=== PATIENT | male | born 1930 | race Caucasian/White ===

== ENCOUNTER 2017-12-08 10:33 | Inpatient (IN) | payer MEDICARE ==
[~2017-12-08] VITALS: Ht 167.6 cm; Wt 77.0 kg
[2017-12-08 11:17] LABS: Basophils # (auto) 0.1 uL; Basophils % (auto) 0.7 % (0.0-2.0); Eosinophils # (auto) 0.1 uL; Eosinophils % (auto) 1.1 % (0.0-7.0); Hematocrit 41.5 % (41.0-53.0); Hemoglobin 13.9 g/dL (13.5-17.5); Lymphocytes # (auto) 1.9 uL; Lymphocytes % (auto) 21.2 % (10.0-50.0); Mean Corpuscular Hgb Conc. 33.5 g/dL (32.0-36.0); Mean Corpuscular Volume 86.7 fL (80.0-100.0); Monocytes # (auto) 0.6 uL; Monocytes % (auto) 6.3 % (0.0-12.0); Neutrophils # (auto) 6.2 uL; Neutrophils % (auto) 70.7 % (37.0-80.0); Platelet Count (auto) 241 10^3/uL (140-450); Red Blood Cells 4.78 10^6/uL (4.5-5.90); Red Cell Distribution Width 13.1 % (11.8-14.3); White Blood Cell 8.8 10^3/uL (4.4-10.8)
[2017-12-08 11:48] LABS: Alanine Aminotransferase 39 U/L (16-61); Albumin 3.5 g/dL (3.4-5.0); Alkaline Phosphatase 61 U/L (45-117); Anion Gap 16 (5-15); Aspartate Aminotransferase 23 U/L (15-37); BUN/Creatinine Ratio 13.6; Blood Alcohol < 3.0 mg/dL (0-5); Blood Urea Nitrogen 23 mg/dL (7-18); Calcium 8.8 mg/dL (8.5-10.1); Carbon Dioxide 20 mmol/L (21-32); Chloride 107 mmol/L (98-107); GFR African American 50 mL/min; GFR Non-African American 41 mL/min; Glucose 157 mg/dL (74-106); Magnesium 2.4 mg/dL (1.6-2.6); Potassium 3.8 mmol/L (3.5-5.1); Sodium 143 mmol/L (136-145); Total Protein 7.3 g/dL (6.4-8.2)
[2017-12-08] MEDS ORDERED: InsuLIN R (HUMAN) 100 UNITS in SODIUM CHL 0.9% 99 ML IV SCH (13:35)
[2017-12-08] MEDS ORDERED: SODIUM CHLORIDE 0.9% 1,000 ML IV SCH ×3 (13:35→19:35)
[2017-12-08] MEDS ORDERED: DEXTROSE (50%) 50ML SYRG IV PRN ×2 (13:45→14:15)
[2017-12-08] MEDS ORDERED: cefTRIAXone 1GM/10ml IVPUSH 10 ML IV ONE (14:15)
[2017-12-08] MEDS ORDERED: NITROGLYCERIN 0.4 MG SL TAB SL PRN (14:15)
[2017-12-08] MEDS ORDERED: MORPHINE SULF INJ 2 MG/ML SYRINGE 1ML IV PRN (14:15)
[2017-12-08 14:35] LABS: Basophils # (auto) 0 uL; Basophils % (auto) 0.5 % (0.0-2.0); Eosinophils # (auto) 0 uL; Eosinophils % (auto) 0.3 % (0.0-7.0); Hematocrit 42.1 % (41.0-53.0); Hemoglobin 14.4 g/dL (13.5-17.5); Lymphocytes % (auto) 22.1 % (10.0-50.0); Mean Corpuscular Hemoglobin 29.9 pg (28.0-32.0); Mean Corpuscular Hgb Conc. 34.1 g/dL (32.0-36.0); Mean Corpuscular Volume 87.8 fL (80.0-100.0); Monocytes # (auto) 0.5 uL; Neutrophils # (auto) 6.5 uL; Neutrophils % (auto) 71.1 % (37.0-80.0); Nucleated Red Blood Cells % 0.2 %; Platelet Count (auto) 242 10^3/uL (140-450); Red Cell Distribution Width 13.4 % (11.8-14.3); White Blood Cell 9.1 10^3/uL (4.4-10.8)
[2017-12-08] MEDS ORDERED: ACCU-CHEK COMFORT CURVE STRIP VI SCH (15:00)
[2017-12-08 15:08] LABS: BUN/Creatinine Ratio 14.4; Magnesium 2.6 mg/dL (1.6-2.6); Phosphorus 2.8 mg/dL (2.5-4.90); Potassium 4.1 mmol/L (3.5-5.1)
[2017-12-08] MEDS: SODIUM CHLORIDE 0.9% 1,000 ML IV SCH (15:27)
[2017-12-08] MEDS: InsuLIN REG 1unit/0.01ml Soln (100units/ml) SC SCH ×2 (17:00→21:42)
[2017-12-08] MEDS: ACCU-CHEK COMFORT CURVE STRIP VI SCH ×2 (17:07→21:42)
[2017-12-08 20:27] LABS: Urine Bacteria NONE SEEN /hpf (None Seen); Urine Blood Negative /uL (Negative); Urine Hyaline Cast FEW /lpf (0 - 2); Urine Mucus FEW (None Seen); Urine Specific Gravity 1.029 (1.001-1.035); Urine WBC 1 /hpf (0 - 3)
[2017-12-08 20:49] LABS: Alcohol, Urine < 3.0 mg/dL (0-5); Amphetamine Screen, Urine NEGATIVE (NEGATIVE); Barbiturate Scree,Urine NEGATIVE (NEGATIVE); Benzodiazephine Screen, Urine NEGATIVE (NEGATIVE); Cannabinoid Screen, Urine NEGATIVE (NEGATIVE); Cocaine Screen, Urine NEGATIVE (NEGATIVE); Opiate Scree,Urine NEGATIVE (NEGATIVE); Phencyclidine Screen, Urine NEGATIVE (NEGATIVE)
[2017-12-08] MEDS: ATORVASTATIN 20 MG TAB PO SCH (21:42)
[2017-12-08 22:22] VITALS: BP 140/90
[2017-12-09] MEDS ORDERED: DONE10TA40 PO (03:07)
[2017-12-09] MEDS ORDERED: PRAV20TA3 PO (03:07)
[2017-12-09] MEDS ORDERED: MEMA1TAB2 PO (03:07)
[2017-12-09] MEDS: SODIUM CHLORIDE 0.9% 1,000 ML IV SCH ×2 (03:35→17:11)
[2017-12-09] MEDS: ACCU-CHEK COMFORT CURVE STRIP VI SCH ×4 (06:28→21:28)
[2017-12-09] MEDS: InsuLIN REG 1unit/0.01ml Soln (100units/ml) SC SCH ×4 (06:28→21:28)
[2017-12-09 06:47] LABS: Basophils # (auto) 0 uL; Basophils % (auto) 0.7 % (0.0-2.0); Eosinophils # (auto) 0.2 uL; Eosinophils % (auto) 2.9 % (0.0-7.0); Hematocrit 37.7 % (41.0-53.0); Hemoglobin 12.9 g/dL (13.5-17.5); Lymphocytes # (auto) 2.2 uL; Lymphocytes % (auto) 32.6 % (10.0-50.0); Mean Corpuscular Hemoglobin 29.8 pg (28.0-32.0); Mean Corpuscular Hgb Conc. 34.2 g/dL (32.0-36.0); Mean Corpuscular Volume 87.1 fL (80.0-100.0); Monocytes # (auto) 0.6 uL; Monocytes % (auto) 8.5 % (0.0-12.0); Neutrophils # (auto) 3.8 uL; Neutrophils % (auto) 55.3 % (37.0-80.0); Nucleated Red Blood Cells % 0.1 %; Platelet Count (auto) 227 10^3/uL (140-450); Red Blood Cells 4.32 10^6/uL (4.5-5.90); Red Cell Distribution Width 13.4 % (11.8-14.3); White Blood Cell 6.8 10^3/uL (4.4-10.8)
[2017-12-09 07:07] LABS: BUN/Creatinine Ratio 19.4; Calcium 8.2 mg/dL (8.5-10.1); Potassium 3.6 mmol/L (3.5-5.1)
[2017-12-09 09:00] VITALS: BP 116/70
[2017-12-09] MEDS ORDERED: cefTRIAXone 1GM/10ml IVPUSH 10 ML IV SCH (09:00)
[2017-12-09] MEDS: ASPirin 81 mg TAB PO SCH (09:55)
[2017-12-09] MEDS ORDERED: LEVOTHYROXINE SODIUM 25 MCG TAB PO ONE (10:30)
[2017-12-09] MEDS ORDERED: OPTISON 3ml Vial for INJ IV ONE (11:32)
[2017-12-09 13:00] VITALS: BP 120/72
[2017-12-09 17:00] VITALS: BP 126/70
[2017-12-09] MEDS: ATORVASTATIN 20 MG TAB PO SCH (21:28)
[2017-12-09 22:46] VITALS: BP 156/86
[2017-12-10 05:01] VITALS: BP 120/74
[2017-12-10] MEDS: LEVOTHYROXINE SODIUM 25 MCG TAB PO SCH (06:21)
[2017-12-10] MEDS: InsuLIN REG 1unit/0.01ml Soln (100units/ml) SC SCH ×4 (06:29→22:50)
[2017-12-10] MEDS: ACCU-CHEK COMFORT CURVE STRIP VI SCH ×4 (06:29→22:00)
[2017-12-10 06:33] LABS: BUN/Creatinine Ratio 17.2; Calcium 7.9 mg/dL (8.5-10.1); Potassium 3.4 mmol/L (3.5-5.1)
[2017-12-10 08:24] VITALS: BP 133/77
[2017-12-10] MEDS: SODIUM CHLORIDE 0.9% 1,000 ML IV SCH (09:10)
[2017-12-10] MEDS ORDERED: MEMANTINE HCL 5 MG TAB PO ONE (11:45)
[2017-12-10] MEDS: ASPirin 81 mg TAB PO SCH (12:34)
[2017-12-10 13:10] VITALS: BP 132/87
[2017-12-10 16:54] VITALS: BP 128/62
[2017-12-10 20:00] VITALS: BP 138/69
[2017-12-10 22:00] VITALS: BP 138/69
[2017-12-10] MEDS: ATORVASTATIN 20 MG TAB PO SCH (22:36)
[2017-12-10] MEDS: DONEPEZIL HYDROCHLORIDE 5 MG TAB PO SCH (22:37)
[2017-12-11 05:00] VITALS: BP 137/72
[2017-12-11] MEDS: LEVOTHYROXINE SODIUM 25 MCG TAB PO SCH (06:19)
[2017-12-11] MEDS: ACCU-CHEK COMFORT CURVE STRIP VI SCH ×4 (06:24→21:59)
[2017-12-11] MEDS: InsuLIN REG 1unit/0.01ml Soln (100units/ml) SC SCH ×4 (06:24→21:59)
[2017-12-11 08:37] VITALS: BP 130/72
[2017-12-11] MEDS: ASPirin 81 mg TAB PO SCH (09:49)
[2017-12-11] MEDS: MEMANTINE HCL 5 MG TAB PO SCH (09:50)
[2017-12-11 17:37] VITALS: BP 130/70
[2017-12-11] MEDS: DONEPEZIL HYDROCHLORIDE 5 MG TAB PO SCH (21:58)
[2017-12-11] MEDS: ATORVASTATIN 20 MG TAB PO SCH (21:58)
[2017-12-11 22:00] VITALS: BP 144/80
[2017-12-12 05:00] VITALS: BP 136/78
[2017-12-12] MEDS: InsuLIN REG 1unit/0.01ml Soln (100units/ml) SC SCH ×4 (06:19→22:10)
[2017-12-12] MEDS: ACCU-CHEK COMFORT CURVE STRIP VI SCH ×4 (06:19→22:10)
[2017-12-12] MEDS: LEVOTHYROXINE SODIUM 25 MCG TAB PO SCH (06:19)
[2017-12-12 08:11] VITALS: BP 147/82
[2017-12-12] MEDS: MEMANTINE HCL 5 MG TAB PO SCH (09:05)
[2017-12-12] MEDS: ASPirin 81 mg TAB PO SCH (09:05)
[2017-12-12 12:02] VITALS: BP 141/75
[2017-12-12 16:25] VITALS: BP 136/77
[2017-12-12 20:00] VITALS: BP 141/81
[2017-12-12 22:00] VITALS: BP 141/81
[2017-12-12] MEDS: DONEPEZIL HYDROCHLORIDE 5 MG TAB PO SCH (22:09)
[2017-12-12] MEDS: ATORVASTATIN 20 MG TAB PO SCH (22:10)
[2017-12-13 06:00] VITALS: BP 126/67
[2017-12-13] MEDS: InsuLIN REG 1unit/0.01ml Soln (100units/ml) SC SCH ×4 (06:42→21:58)
[2017-12-13] MEDS: ACCU-CHEK COMFORT CURVE STRIP VI SCH ×4 (06:42→21:59)
[2017-12-13] MEDS: LEVOTHYROXINE SODIUM 25 MCG TAB PO SCH (06:42)
[2017-12-13 09:22] VITALS: BP 107/60
[2017-12-13] MEDS: MEMANTINE HCL 5 MG TAB PO SCH (09:26)
[2017-12-13] MEDS: ASPirin 81 mg TAB PO SCH (09:26)
[2017-12-13 13:18] VITALS: BP 126/70
[2017-12-13] MEDS: LACTULOSE 20Gm/30ML SOLN PO SCH (16:40)
[2017-12-13 17:00] VITALS: BP_SYST 126; BP_SYST 93; BP_DIAS 48; BP_DIAS 70
[2017-12-13] MEDS: DONEPEZIL HYDROCHLORIDE 5 MG TAB PO SCH (21:57)
[2017-12-13] MEDS: ATORVASTATIN 20 MG TAB PO SCH (21:58)
[2017-12-13 22:00] VITALS: BP 148/81
[2017-12-14 05:00] VITALS: BP 115/59
[2017-12-14] MEDS: InsuLIN REG 1unit/0.01ml Soln (100units/ml) SC SCH ×4 (06:30→21:23)
[2017-12-14] MEDS: LEVOTHYROXINE SODIUM 25 MCG TAB PO SCH (06:30)
[2017-12-14] MEDS: ACCU-CHEK COMFORT CURVE STRIP VI SCH ×4 (06:30→21:23)
[2017-12-14 08:26] VITALS: BP 102/61
[2017-12-14] MEDS: ASPirin 81 mg TAB PO SCH (11:57)
[2017-12-14] MEDS: LACTULOSE 20Gm/30ML SOLN PO SCH (11:58)
[2017-12-14] MEDS: MEMANTINE HCL 5 MG TAB PO SCH (11:58)
[2017-12-14 12:19] VITALS: BP 115/72
[2017-12-14 16:37] VITALS: BP 108/61
[2017-12-14 20:00] VITALS: BP 132/70
[2017-12-14] MEDS: DONEPEZIL HYDROCHLORIDE 5 MG TAB PO SCH (21:23)
[2017-12-14] MEDS: ATORVASTATIN 20 MG TAB PO SCH (21:23)
[2017-12-14 22:01] VITALS: BP 132/70
[2017-12-15 05:41] VITALS: BP 105/63
[2017-12-15] MEDS: InsuLIN REG 1unit/0.01ml Soln (100units/ml) SC SCH (06:20)
[2017-12-15] MEDS: LEVOTHYROXINE SODIUM 25 MCG TAB PO SCH (06:27)
[2017-12-15] MEDS: ACCU-CHEK COMFORT CURVE STRIP VI SCH (06:28)
[2017-12-15 08:16] VITALS: BP 110/58
[2017-12-15] MEDS: MEMANTINE HCL 5 MG TAB PO SCH (10:30)
[2017-12-15] MEDS: LACTULOSE 20Gm/30ML SOLN PO SCH (10:31)
[2017-12-15] MEDS: ASPirin 81 mg TAB PO SCH (10:31)
[2017-12-15 12:09] VITALS: BP 139/67
== END 2017-12-15 13:40 | disposition home or self-care (01) | DRG 682 ==
LOC: ER 10:33 → TELE 10:34 → TELE-CENTR 20:00 → CENTRAL 12-10 11:28
PROVIDERS: ADMIT Internal Medicine; ATTEND Internal Medicine
DX: N17.9 Acute kidney failure, unspecified (principal); G93.41 Metabolic encephalopathy; E11.10 Type 2 diabetes mellitus with ketoacidosis without coma; F03.90 Unspecified dementia, unspecified severity, without behavioral disturbance, psychotic disturbance, mood disturbance, and anxiety; E86.0 Dehydration; E03.9 Hypothyroidism, unspecified; I08.0 Rheumatic disorders of both mitral and aortic valves; I25.10 Atherosclerotic heart disease of native coronary artery without angina pectoris; Z91.83 Wandering in diseases classified elsewhere; Z95.1 Presence of aortocoronary bypass graft
CPT/HCPCS: 36415; 70450; 71045; 80048; 80053; 80307; 80320; 81001; 82010; 82607; 82962; 83036; 83735; 84100; 84443; 84484; 85025; 93005; 93306; 96361; 96374; J1815; Q9956

== ENCOUNTER 2018-11-26 15:21 | Inpatient (IN) | payer OTHER, MEDICARE | END 2018-11-28 18:54 | LOC: ER 15:21 → TELE 22:31 → TELE-WESTW 23:11 | DX: A41.9 Sepsis, unspecified organism (principal); E43 Unspecified severe protein-calorie malnutrition; I21.A1 Myocardial infarction type 2; I21.4 Non-ST elevation (NSTEMI) myocardial infarction; I50.22 Chronic systolic (congestive) heart failure; L89.150 Pressure ulcer of sacral region, unstageable; E87.6 Hypokalemia; F03.90 Unspecified dementia, unspecified severity, without behavioral disturbance, psychotic disturbance, mood disturbance, and anxiety ==